=== PATIENT | female | born 1995 | race Caucasian/White ===

== ENCOUNTER 2021-05-02 02:27 | Emergency (ER) | payer OTHER, SELFPAY ==
--- NOTE | ~2021-05-02 | US_ITS ---
EXAMINATION: US abdomen limited DATE: 05/02/2021 07:34 INDICATION: Epigastric pain TECHNIQUE: Multiple grayscale and Doppler ultrasound images of the abdomen were obtained. COMPARISON: CT abdomen and pelvis dated 05/02/2021 FINDINGS: The pancreatic head and body are normal in appearance. The pancreatic tail is not visualized. Liver has normal echogenicity and contour, with a smooth surface. No liver lesion identified. No intrahepat ic biliary duct dilation suspected. Portal venous flow was seen in the hepatopetal, normal direction and has normal Doppler waveform. There are multiple shadowing gallstones within a normal-appearing ga llbladder with no evident wall thickening. Sonographic Calabrese sign was reported as negative by the so nographer. Common bile duct measures 4 mm diameter which is normal. Visualized portion of the right k idney demonstrate normal contour and echogenicity with no hydronephrosis. IMPRESSION: 1. Cholelithiasis without abnormal gallbladder wall thickening or sonographic Calabrese sign to suggest acute cholecystitis. Reviewed, dictated and finalized at location A. IMPRESSION: 1. Cholelithiasis without abnormal gallbladder wall thickening or sonographic M urphy sign to suggest acute cholecystitis.
--- NOTE | ~2021-05-02 | XR_ITS ---
EXAMINATION: XR abdomen/kub 1V INDICATION: Constipation and upper abdominal pain TECHNIQUE: Supine views of the abdomen were obtained on 2 radiographs. COMPARISON: None FINDINGS: The bowel gas pattern is normal. There is a moderate volume of colonic stool. The visualize d osseous structures are unremarkable. IMPRESSION: 1. No radiographic correlate for the patient's symptoms. Reviewed, dictated and finalized at location A.
--- NOTE | ~2021-05-02 | CT_ITS ---
EXAMINATION: CT abdomen pelvis w con DATE: 05/02/2021 05:26 INDICATION: Epigastric pain TECHNIQUE: Computed tomography (CT) of the abdomen and pelvis was performed with 100 mL Omnipaque-350 intravenous contrast. Automated exposure control and iterative reconstruction technique were employe d. The dose-length product was 1567.25 mGy-cm. COMPARISON: None FINDINGS: Lung bases are clear. Heart size is normal. No pericardial or pleural effusion. Gallbladder appears n ormal with a cold gallstones seen on subsequent ultrasound. No pericholecystic fluid or inflammatory stranding to suggest acute cholecystitis. Liver, spleen, pancreas, bilateral adrenal glands and kidne ys are normal. No intra hepatic biliary ductal dilation. The common bile duct is mildly dilated measu ring up to 7 mm. Layering fluid and ingested material within the stomach without evident abnormal wal l thickening. Bowels including the appendix are normal. Bladder, uterus and bilateral adnexa are unre markable. No free intraperitoneal gas or fluid. No pathologically enlarged abdominal or pelvic lympha denopathy. Bones are unremarkable. IMPRESSION: 1. Mild dilation of the common bile duct which measures up to 7 mm suggesting possibility of choledoc holithiasis with cholelithiasis, occult on CT seen on subsequent right upper quadrant ultrasound. Cor relate with liver function tests and could consider MRCP for further evaluation. Reviewed, dictated and finalized at location A. IMPRESSION: 1. Mild dilation of the common bile duct which measures up to 7 mm suggesting p ossibility of choledocholithiasis with cholelithiasis, occult on CT seen on sub sequent right upper quadrant ultrasound. Correlate with liver function tests an d could consider MRCP for further evaluation.
[2021-05-02 02:32] VITALS: BP 157/103; PULSE 91; RESP 18; TEMP 36.8; O2SAT 100
--- NOTE | 2021-05-02 02:40 | ED.ABDPAIN ---
HPI - Abdominal Pain General Chief Complaint: Abdominal Pain <Kevan Kincaid MD - Last Filed: 05/08/21 09:52> Stated Complaint: upper abd pain <Kevan Kincaid MD - Last Filed: 05/08/21 09:52> Time Seen by Provider: 05/02/21 02:31 <Kevan Kincaid MD - Last Filed: 05/08/21 09:52> History of Present Illness HPI narrative: Intermittent crampy epigastric pain for the past 5 days. Pain is moderate. No radiation. No inciting events identified. She has not had a bowel movement in 3 days. No previous abdominal surgeries. She tried gas-x without relief. <Kevan Kincaid MD - Last Filed: 05/08/21 09:52> Related Data Home Medications: Home Medications Medication Instructions Recorded Confirmed dextroamphetamine-amphetamine 10 mg PO BID 05/02/21 <Kevan Kincaid MD - Last Filed: 05/08/21 09:52> Allergies/Adverse Reactions: Allergies Allergy/AdvReac Type Severity Reaction Status Date / Time No Known Allergies Allergy Verified 05/02/21 02:58 <Kevan Kincaid MD - Last Filed: 05/08/21 09:52> Review of Systems Review of Systems: All systems reviewed & are unremarkable except as noted in HPI and below <Kevan Kincaid MD - Last Filed: 05/08/21 09:52> Constitutional: Constitutional: Denies chills and Denies fever(s) <Kevan Kincaid MD - Last Filed: 05/08/21 09:52> Cardiovascular: Cardiovascular: Denies chest pain <Kevan Kincaid MD - Last Filed: 05/08/21 09:52> Respiratory: Respiratory: Denies dyspnea <Kevan Kincaid MD - Last Filed: 05/08/21 09:52> Gastrointestinal: Gastrointestinal: Reports as per HPI <Kevan Kincaid MD - Last Filed: 05/08/21 09:52> Genitourinary: Genitourinary: Reports no additional female genitourinary complaints <Kevan Kincaid MD - Last Filed: 05/08/21 09:52> Neurologic: Reports system reviewed and no additional complaints, except as documented <Kevan Kincaid MD - Last Filed: 05/08/21 09:52> [facility] Past Medical History Medical History: Medical History (Updated 05/03/21 @ 00:00 by Kassidy Floyd) ADHD <Kevan Kincaid MD - Last Filed: 05/08/21 09:52> Social History Social History: Social History (Updated 05/02/21 @ 06:37 by Kevan Kincaid MD) Gender identity (if verbalized by the patient): Female <Kevan Kincaid MD - Last Filed: 05/08/21 09:52> Exam Const: General: no acute distress and alert <Kevan Kincaid MD - Last Filed: 05/08/21 09:52> Nutritional Appearance: obese <Kevan Kincaid MD - Last Filed: 05/08/21 09:52> Orientation/consciousness: patient oriented x3 <Kevan Kincaid MD - Last Filed: 05/08/21 09:52> HENMT: Head: normal to inspection <Kevan Kincaid MD - Last Filed: 05/08/21 09:52> Resp: Effort & Inspection: normal respiratory effort <Kevan Kincaid MD - Last Filed: 05/08/21 09:52> Auscultation: clear to auscultation bilaterally <Kevan Kincaid MD - Last Filed: 05/08/21 09:52> Cardio: Rate: regular rate <Kevan Kincaid MD - Last Filed: 05/08/21 09:52> Rhythm: regular rhythm <Kevan Kincaid MD - Last Filed: 05/08/21 09:52> GI: Inspection: non-distended <Kevan Kincaid MD - Last Filed: 05/08/21 09:52> GI Palp: Yes Soft to palpation, Yes Tenderness to palpation present (GI) (epigastric), No Guarding due to palpation present (GI) and No Rebound tenderness present <Kevan Kincaid MD - Last Filed: 05/08/21 09:52> Auscultation: normal bowel sounds <Kevan Kincaid MD - Last Filed: 05/08/21 09:52> Skin: General skin exam: normal color <Kevan Kincaid MD - Last Filed: 05/08/21 09:52> Neuro: General: patient oriented x3, moves all extremities, no focal motor deficits and CN's II-XI intact bilaterally <Kevan Kincaid MD - Last Filed: 05/08/21 09:52> Speech: normal speech <Kevan Kincaid MD - Last Filed: 05/08/21 09:52> Extrem: General: normal to inspection <
[2021-05-02 04:06] LABS: Basophils Absolute Auto 0.1 K/mm3 (0.0-0.1); Basophils Percent Auto 0.6 % (0.2-1.2); Eosinophils Absolute Auto 0.4 K/mm3 (0-0.3); Eosinophils Percent Auto 2.5 % (0-4.4); Hematocrit 44.3 % (37.0-47.0); Hemoglobin 14.3 g/dL (12.0-15.0); Immature Granulocyte Absolute 0.07 K/mm3 (0.00-0.031); Immature Granulocyte Percent A 0.5 % (0-0.5); Lymphocytes Absolute Auto 5.69 K/mm3 (0.9-3.2); Lymphocytes Percent Auto 40.1 % (18.3-44.2); Mean Corpuscular HGB Conc 32.3 g/dl (32-36); Mean Corpuscular Hemoglobin 30.7 pg (26-34); Mean Corpuscular Volume 95.1 fl (80-100); Mean Platelet Volume 10.4 fl (7.4-10.4); Neutrophils Percent Auto 49.3 % (45.5-73.1); Platelet Count Result 460 k/mm3 (150-375); Red Blood Count 4.66 M/mm3 (4.2-5.4); Red Cell Distribution Width 13.5 % (11.5-14.5); White Blood Count 14.2 K/mm3 (4.5-10.0)
[2021-05-02 04:13] VITALS: BP 146/100; PULSE 80; RESP 18; O2SAT 98
[2021-05-02] MEDS: MAGNESIUM CITRATE 300 ML BTL PO (04:15)
[2021-05-02] MEDS: DICYCLOMINE HCL INJ 20 MG/2 ML VIAL IM (04:15)
[2021-05-02 04:44] LABS: Add Urine Microscopic? YES; Appearance Urine Cloudy (Clear); Bilirubin Urine Negative (Negative); Blood Urine Negative (Negative); Calcium Oxalate Crystals Urine Many /hpf; Color Urine Yellow (Yellow); Glucose Urine UA Negative (Negative); Ketones Urine Negative (Negative); Leukocyte Esterase Ur Negative LEU/UL (Negative); Mucus Urine Moderate /lpf; Nitrate Urine Negative (Negative); Protein Urine 1+ mg/dL (Negative); Squamous Epithelial Cell Urine Few /hpf (Few)
[2021-05-02 05:05] LABS: Alanine Aminotransferase 26 U/L (4-35); Alkaline Phosphatase 84 U/L (38-126); Anion Gap 7 mmol/L (8-16); Aspartate Amino Transferase 27 U/L (14-36); Bilirubin,Total 0.2 mg/dL (0.2-1.3); Blood Urea Nitrogen 11 mg/dL (7-17); Calcium 9.2 mg/dL (8.4-10.2); Carbon Dioxide 24 mmol/L (22-30); Chloride 110 mmol/L (98-107); Estimated CRCL calculation 193 ml/min; Estimated Glomerular Filt Rate > 60; Glucose 109 mg/dL (65-105); Lipase 62 U/L (23-300); Potassium 4.3 mmol/L (3.4-5.0); Sodium 141 mmol/L (137-145)
[2021-05-02 05:11] LABS: Specific Grav Ur 1.034 (1.001-1.035)
--- NOTE | 2021-05-02 05:19 | PC.NURSE ---
Pt to ct via cart.
--- NOTE | 2021-05-02 05:21 | PC.NURSE ---
pt to CT scan.
--- NOTE | 2021-05-02 05:38 | PC.NURSE ---
Pt returned from radiology.
--- NOTE | 2021-05-02 06:06 | PC.NURSE ---
Report called to receiving nurse. Ok to send pt to floor.
--- NOTE | 2021-05-02 06:25 | PC.NURSE ---
Pt resting comfortably on cart in its lowest position with call button and personal items within reach. Pt states abdominal pain has improved from 7 and is now rated 3/10. States she has been able to pass gas and that has helped to decrease pain. Overall pt states she feels much better. Pt alert and oriented x4 and in no obvious distress. Pt updated on poc and all questions and concerns addressed. Call button and personal items within reach. Pt advised to press call button for assistance and voices her understanding.
--- NOTE | 2021-05-02 06:30 | PC.NURSE ---
EDMD to bedside to updated pt on poc. All questions and concerns addressed.
[2021-05-02 07:53] VITALS: BP 135/102; PULSE 95; RESP 18; O2SAT 100
[2021-05-02 08:35] VITALS: BP 149/98; PULSE 97; RESP 18; O2SAT 99
== END 2021-05-02 08:35 | disposition home or self-care (01) ==
PROVIDERS: Emergency Medicine; Emergency Provider Emergency Medicine; PCP Internal Medicine
DX: R10.13 Epigastric pain (principal)
CPT/HCPCS: 36415; 74018; 74177; 76705; 80053; 81001; 81025; 83690; 85025; 96372; 99284; A9270; J0500; Q9967